=== PATIENT | female | born 1965 | race Caucasian/White ===

== ENCOUNTER 2018-06-15 13:32 | Outpatient (CLI) | payer BC | END 2018-06-15 23:59 | disposition home or self-care (01) | LOC: CARD DIAG 13:32 | PROVIDERS: ATTEND Internal Medicine Cardiovascular Disease | DX: Z01.818 Encounter for other preprocedural examination (principal); R94.31 Abnormal electrocardiogram [ECG] [EKG] | CPT/HCPCS: 93306 ==

== ENCOUNTER 2020-10-15 08:28 | Emergency (ER) | payer BC ==
[~2020-10-15] VITALS: Ht 165.1 cm; Wt 107.8 kg
[2020-10-15 08:32] VITALS: BP 136/73
[2020-10-15] MEDS ORDERED: morphine 4 MG/ML inj SYRINge IV PRN (09:15)
[2020-10-15] MEDS ORDERED: ondansetron/PF 4mg/2ml inj IV ONE (09:15)
[2020-10-15 09:19] LABS: COLOR,URINE YELLOW (Yellow); GLUCOSE, URINE NEGATIVE (Neg); KETONES,URINE NEGATIVE (Neg); LEUKOCYTE ESTERASE ,URINE NEGATIVE (Neg); NITRITES, URINE NEGATIVE (Neg); OCCULT BLOOD,URINE NEGATIVE (Neg); PROTEIN,URINE NEGATIVE (Neg); UROBILINOGEN,URINE 0.2 E.U/dL (0.2-1.0)
[2020-10-15 09:25] LABS: UA COLLECTION TYPE CLN CATCH MIDSTREAM
[2020-10-15 09:26] LABS: CLARITY,URINE CLEAR (Clear)
[2020-10-15 09:29] LABS: ALANINE AMINOTRANSFERASE 21 U/L (12-78); ALBUMIN 4.1 G/DL (3.4-5.0); ALBUMIN/GLOBULIN RATIO 1.1 (1.1-1.5); ALKALINE PHOSPHATASE 115 IU/L (46-116); ANION GAP 13 (8-16); ASPARTATE AMINO TRANSFERASE 24 U/L (10-37); BILIRUBIN,TOTAL 0.4 MG/DL (0.1-1.0); BLOOD UREA NITROGEN 13 MG/DL (7-18); BUN/CREATININE RATIO 16.7 (6.6-38.0); CALCIUM 9.2 MG/DL (8.5-10.1); CHLORIDE 104 MMOL/L (99-107); CREATININE 0.78 MG/DL (0.40-0.90); GLUCOSE 102 MG/DL (70-104); LIPASE 79 U/L (73-393); POTASSIUM 4.4 MMOL/L (3.5-5.1); SODIUM 143 MMOL/L (135-145); TOTAL CARBON DIOXIDE 25.8 MMOL/L (24-32); eGFR 76 ML/MIN
[2020-10-15 09:42] LABS: URINE HCG NEGATIVE (NEG)
[2020-10-15 10:34] LABS: BASOPHILS # (AUTO) 0.1 X10'3 (0-0.2); BASOPHILS % (AUTO) 0.9 % (0-1); EOSINOPHILS # (AUTO) 0.2 X10'3 (0-0.9); EOSINOPHILS % (AUTO) 3.3 % (0-6); HEMOGLOBIN 14.2 g/dl (12.0-16.0); LYMPHOCYTES # (AUTO) 1.6 X10'3 (1.1-4.8); LYMPHOCYTES % (AUTO) 24.2 % (21-51); MEAN CORPUSCULAR HEMOGLOBIN 31.2 PG (27.0-31.0); MEAN CORPUSCULAR HGB CONC 33.9 g/dL (33.0-36.5); MEAN CORPUSCULAR VOLUME 92.1 FL (78-98); MEAN PLATELET VOLUME 7.4 FL (7.4-10.4); MONOCYTES # (AUTO) 0.5 X10'3 (0-0.9); MONOCYTES % (AUTO) 7.9 % (2-12); NEUTROPHILS # (AUTO) 4.1 X10'3 (1.8-7.7); NEUTROPHILS % (AUTO) 63.7 % (42-75); PLATELET COUNT 249 X10'3 (140-440); RED BLOOD COUNT 4.56 X10'6 (4.20-5.60); WHITE BLOOD COUNT 6.5 X10'3 (4.5-11.0)
[2020-10-15] MEDS ORDERED: HYDR-3972 PO (11:11)
== END 2020-10-15 11:00 | disposition home or self-care (01) ==
LOC: ER 08:29
DX: R10.32 Left lower quadrant pain (principal); Z90.49 Acquired absence of other specified parts of digestive tract; Z98.890 Other specified postprocedural states; Z88.2 Allergy status to sulfonamides; Z79.899 Other long term (current) drug therapy
CPT/HCPCS: 36415; 74176; 80053; 81003; 81025; 83690; 85025; 99284

== ENCOUNTER 2024-04-09 17:06 | Outpatient (CLI) | payer BC | END 2024-04-09 23:59 | disposition home or self-care (01) | LOC: LAB 17:06 | PROVIDERS: ATTEND Surgery | DX: R89.5 Abnormal microbiological findings in specimens from other organs, systems and tissues (principal) | CPT/HCPCS: 87070 ==

== ENCOUNTER 2025-02-27 07:52 | Day surgery (SDC) | payer BC ==
--- NOTE | 2025-02-21 10:29 | ELECTROCARDIOGRAPH REPORT ---
[facility] Test Date: 2025-02-21 Test Time: 10:27:00 Pat Name: RONAN FRIEND Department: [facility]-PRE-OP Patient ID: [id number] Room: Gender: F Information Management Manager: stefanie : 1965 Requested By: SHIVAM GALIICA Order Number: [id number] Reading MD: Dr. Elliott Bernstein Measurements Intervals [place] Rate: 65 P: 62 HI: 174 QRS: 55 QRSD: 91 T: 49 QT: 396 QTc: 412 Interpretive Statements Sinus rhythm Electronically Signed On 02-21-2025 16:26:[address] Elliott Bernstein Please click the below link to view image of tracing.
[2025-02-21 10:33] LABS: MEAN PLATELET VOLUME 7.1 FL (7.4-10.4); PRE OP HEMATOCRIT 41.0 % (35.0-45.0); PRE OP HEMOGLOBIN 13.5 g/dL (12.0-16.0); PRE OP PLATELET COUNT 179 X10'3 (140-440); PRE OP WHITE BLOOD COUNT 6.5 10'3 (4.8-10.8); RED CELL DISTRIBUTION WIDTH 13.2 % (11.5-14.5)
[2025-02-21 11:21] LABS: CREATININE 0.64 MG/DL (0.40-0.90); PRE OP ALT 12 U/L (30-65); PRE OP ANION GAP 12 (8-16); PRE OP AST 24 U/L (10-37); PRE OP BILIRUB, TOTAL 0.4 MG/DL (0.0-1.0); PRE OP GLUCOSE 70 MG/DL (70-104); PRE OP SODIUM 143 MMOL/L (135-145); TOTAL CARBON DIOXIDE 22.8 MMOL/L (24-32); eGFR > 90 ML/MIN
[2025-02-21 11:22] LABS: PRE OP POTASSIUM 4.4 MMOL/L (3.4-5.1)
[~2025-02-27] VITALS: Ht 165.1 cm; Wt 79.0 kg
[2025-02-27] VITALS (9 sets, daily range): BP systolic 105–129; BP diastolic 66–86; PULSE 59–75; RESP 11–16; TEMP 97.6; O2SAT 96–98
[~2025-02-27 07:52] MED LIST: ATOR20TA66 PO; BACL10TA2 PO; CETI10TA14 PO; MELA5TAB66 PO; MULT-1085 PO; OMEP40CA21 PO; SERT-432 PO; TRAZ-251 PO
[2025-02-27] MEDS: ringers solution, lacted 1,000 ML IV SCH (08:50)
[2025-02-27] MEDS: ceFAZolin 2gm/dext,iso 50mL 50 ML IV ONE (11:01)
[2025-02-27] MEDS ORDERED: LIDOcaine 1% 30ml preserv. free vial ONE (11:17)
[2025-02-27] MEDS ORDERED: BUPIVAcaine 2.5mg/ml inj 50ml vial (contains preservative) ONE (11:17)
[2025-02-27] MEDS: scopolamine 1MG/72H patch 1 PATCH PATCH.TD.3 TD ONE (11:24)
[2025-02-27] MEDS ORDERED: midazolam 1 mg/ML 2ml injection ONE (11:31)
[2025-02-27] MEDS ORDERED: fentaNYL/PF 50MCG/1 ML 2ML syringe ONE ×2 (11:32→11:33)
[2025-02-27] MEDS ORDERED: propofol inj 20 ML IV ONE (11:33)
[2025-02-27] MEDS ORDERED: dexamethasone sod phosphate 4mg/ml inj. ONE (11:56)
[2025-02-27] MEDS ORDERED: ondansetron/PF 4mg/2ml inj ONE (11:56)
[2025-02-27] MEDS ORDERED: bacitracin 15gm ointment TP ONE (12:24)
--- NOTE | 2025-02-27 12:38 | OPERATIVE REPORT ---
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 Shivam Galicia Director Of Rehabilitation Tiffany Choi PA-C Anesthesiologist: Kingsley Lucas Type of Anesthesia: General Findings: Scar tissue retro to nipple, inverted nipple Complications None Prosthetics\Implants used: None Estimated Blood Loss: Less than 2 mL Specimen Removed: None Description of Procedure: Vickie is a 59-year-old female who was seen by myself in the office regarding chronic recurrent abscesses and nipple inversion. She has concerned about reinfection with the inverted nipple full where bacteria and debris collect. She and I discussed the surgical procedure the possibility of nipple inversion and infections. She agreed to the surgery informed consent was obtained. Patient was seen in the preoperative holding area by myself and the anesthesiologist. The skin was marked in the right breast with my initials. She had an IV placed, SCDs to lower extremities, and antibiotics at the bedside. They were administered prior to the cut of surgery. She was taken to the OR and placed on table in supine position with the arms extended. General anesthesia was administered with an LMA. The right breast was evaluated and nipple by me. The patient was prepped and draped in a sterile fashion a time- out was performed and agreed upon. A proposed incision was made in the areolar edge about 12-3 o'clock. 1% lidocaine was injected. The incision was made with a 15 blade. I extended through the deep dermal layer with the cutting on the cautery. Nat retractors were placed in the edges of the cavity and I dissected into the breast tissue and to the retroareolar space. Once the plane was cleared behind the nipple. I used 3-0 renee Vicryl suture to approximate the edges of the nipple base together in three different directions. This allowed t he nipple to alberto and stay in its position. This allowed me to bolster that tissue behind the nipple. I then used the 3-0 Vicryl suture to feel in the tissue plane to give the base of the nipple some fullness. The incision was closed with 3-0 Vicryl suture and a 4-0 Monocryl running subcuticular stitch. The skin was cleaned in a Dermabond was applied to the incision. 0.25% Marcaine was injected at the site. A dressing was placed around the nipple and secured. Patient tolerated procedure well and and taken to recovery in stable condition. All needle sponge counts were correct SHIVAM GALICIA DO Feb 27, 2025 12:38
== END 2025-02-27 13:24 | disposition home or self-care (01) ==
LOC: PAS 07:52
PROVIDERS: ATTEND Surgery
DX: N64.59 Other signs and symptoms in breast (principal); N64.53 Retraction of nipple; N61.1 Abscess of the breast and nipple; N63.41 Unspecified lump in right breast, subareolar; E78.5 Hyperlipidemia, unspecified; F17.210 Nicotine dependence, cigarettes, uncomplicated; F32.A Depression, unspecified; K21.9 Gastro-esophageal reflux disease without esophagitis; R73.09 Other abnormal glucose; R94.31 Abnormal electrocardiogram [ECG] [EKG]; Z98.890 Other specified postprocedural states; Z90.49 Acquired absence of other specified parts of digestive tract; Z90.710 Acquired absence of both cervix and uterus; Z86.73 Personal history of transient ischemic attack (TIA), and cerebral infarction without residual deficits; Z90.3 Acquired absence of stomach [part of]; Z88.2 Allergy status to sulfonamides
CPT/HCPCS: 19355; 36415; 80053; 82948; 85025; 93005; J1100; J2003; J2250; J2405; J2704; J3010; J3490; J7030; J7120; Z7506; Z7508; Z7512; A4215; A4618; A6253; A6258; A7000